=== PATIENT | male | born 1955 | race Caucasian/White ===

== ENCOUNTER 2018-10-22 08:07 | Day surgery (SDC) | payer BC, OTHER ==
[2018-10-22] MEDS ORDERED: diphenhydrAMINE 25 MG CAP PO ONE ×2 (08:12→08:28)
[2018-10-22] MEDS ORDERED: ASPIRIN EC 325 MG TAB PO ONE ×2 (08:12→08:28)
[2018-10-22] MEDS ORDERED: DIAZEPAM 5 MG TAB PO ONE (08:12)
[2018-10-22] MEDS ORDERED: NS 1,000 ML IV ONE (08:12)
[2018-10-22] MEDS ORDERED: FAMOTIDINE 20 MG TAB PO ONE (08:12)
[2018-10-22] MEDS ORDERED: FAMOTIDINE 20 MG TAB ONE (08:28)
[2018-10-22] MEDS ORDERED: DIAZEPAM 5 MG TAB ONE (08:29)
[2018-10-22 08:53] LABS: PLATELET COUNT 210 10^3/uL (150-400)
[2018-10-22 09:31] LABS: INR 1.05 (0.83-1.16); PROTIME(PATIENT) 13.3 SEC (12.0-15.0)
--- NOTE | 2018-10-22 09:44 | PDPROPOC ---
Sedation Plan of Care Sedation Plan of Care: vital signs stable, mental status noted, patient educated of risks, benefits, alternatives, patient can tolerate sedation ASA Classification: ASA 2 Planned drugs: fentanyl, midazolam Mallampati Score: Class 1 Mallampati Reference Image: Patient passed 3-3-2 rule?: Yes
--- NOTE | 2018-10-22 09:44 | PDHPUP ---
History & Physical Update H&P update statement: This history and physical update is based on an assessment of the patient which was completed after admission or registration (within 24 hours), but prior to the surgery/procedure. H&P update: H&P reviewed & patient examined, no change in patient's condition since H&P completed
[2018-10-22] MEDS ORDERED: LIDOCAINE 1% 300 MG/30 ML SDV ONE (10:59)
[2018-10-22] MEDS ORDERED: HEPARIN 10,000 UNIT/10 ML MDV (1,000 UNIT/ML) ONE (10:59)
[2018-10-22] MEDS ORDERED: VERAPAMIL 5 MG/2 ML VIAL ONE (10:59)
[2018-10-22] MEDS ORDERED: MIDAZOLAM 2 MG/2 ML VIAL ONE (10:59)
[2018-10-22] MEDS ORDERED: fentaNYL 100 MCG/2 ML INJ ONE (10:59)
[2018-10-22] MEDS ORDERED: IOPAMIDOL (ISOVUE-370) 150 ML BTL IV ONE (11:00)
--- NOTE | 2018-10-22 11:27 | CPEKG ---
Test Reason : OPEN Blood Pressure : / mmHG Vent. Rate : 049 BPM Atrial Rate : 049 BPM P-R Int : 154 ms QRS Dur : 095 ms QT Int : 482 ms P-R-T Axes : 043 067 -21 degrees QTc Int : 436 ms Sinus bradycardia Low voltage, extremity leads Minimal ST elevation, anterior leads Confirmed by Mike Oleary ([id number]) on 10/22/2018 11:27:20 AM Referred By: Jordi Steve Confirmed By:Mike Oleary
--- NOTE | 2018-10-22 14:08 | PDDXCAT ---
Diagnostic Cath Note - . Date: 10/22/18 Storage Architect: Power Indication: other (non sustained vt) High-risk criteria on non-invasive testing: stress-induced large perfusion defect (particularly if anterior), stress-induced moderate-size multiple perfusion defects - Procedure Access: right wrist Procedure: left heart catheterization, coronary angiography, left ventriculogram - Materials Left Heart Cath size: 5F Left Heart Cath materials: pigtail, other ([place] 4) - Findings-Left Heart Catheterization LM: Unobstructed LAD: Unobstructed LCX: Unobstructed RCA: Dominant: Unobstructed EDP: 15 mm of mercury LVEF: 50% Wall motion: Inferior akinesis Assessment: Widely patent site of prior stenting. No new focal stenosis with mild atherosclerotic cardiovascular disease. Inferior akinesis with overall preserved LV systolic function and normal filling pressures.
== END 2018-10-22 15:12 | disposition home or self-care (01) ==
LOC: FCATH 08:07
PROVIDERS: ATTEND Internal Medicine Interventional Cardiology
DX: R55 Syncope and collapse (principal); I47.2 Ventricular tachycardia; I47.1 Supraventricular tachycardia; I25.10 Atherosclerotic heart disease of native coronary artery without angina pectoris; I10 Essential (primary) hypertension; E78.5 Hyperlipidemia, unspecified; I34.0 Nonrheumatic mitral (valve) insufficiency; I25.5 Ischemic cardiomyopathy; I25.2 Old myocardial infarction; Z79.82 Long term (current) use of aspirin; Z82.3 Family history of stroke; Z82.49 Family history of ischemic heart disease and other diseases of the circulatory system; Z95.5 Presence of coronary angioplasty implant and graft
CPT/HCPCS: 93005; 93458; C1769; J1644; J2250; J3010; Q9967

== ENCOUNTER 2018-10-28 10:49 | Observation (INO) | payer BC, OTHER ==
[2018-10-28] MEDS ORDERED: NS 1,000 ML IV ONE (10:51)
[2018-10-28] MEDS ORDERED: BACITRACIN IRRIGATION/NS 50,000 UNITS/1,000 ML BTL IRR ONE (11:16)
[2018-10-28] MEDS ORDERED: ceFAZolin 2 GM/DEXTROSE 100 ML IV ONE (11:16)
[2018-10-28 11:37] LABS: PLATELET COUNT 210 10^3/uL (150-400)
[2018-10-28 11:47] LABS: INR 1.03 (0.83-1.16); PROTIME(PATIENT) 13.1 SEC (12.0-15.0)
[2018-10-28] MEDS ORDERED: ROCURONIUM 50 MG/5 ML VIAL ONE (11:57)
[2018-10-28] MEDS ORDERED: fentaNYL 100 MCG/2 ML INJ ONE (11:57)
[2018-10-28] MEDS ORDERED: PROPOFOL 200 MG/20 ML VIAL ONE (11:57)
[2018-10-28] MEDS ORDERED: fentaNYL 100 MCG/2 ML INJ IVP PRN (12:04)
[2018-10-28] MEDS ORDERED: NALOXONE HCL 0.4 MG/ML INJ IVP PRN (12:04)
[2018-10-28] MEDS ORDERED: ONDANSETRON 4 MG/2 ML VIAL IVP PRN (12:04)
[2018-10-28] MEDS ORDERED: MIDAZOLAM 2 MG/2 ML VIAL IVP ONE (12:04)
[2018-10-28] MEDS ORDERED: DEXAMETHASONE 4 MG/ML VIAL IVP PRN (12:04)
[2018-10-28] MEDS ORDERED: oxyCODONE IR 5 MG TAB PO PRN (12:04)
[2018-10-28] MEDS ORDERED: HYDROmorphONE/DILAUDID 1 MG/ML INJ IVP PRN (12:04)
[2018-10-28] MEDS ORDERED: ALBUTEROL 3 ML DEYVIAL IH PRN (12:04)
[2018-10-28] MEDS ORDERED: LIDOCAINE 1% 300 MG/30 ML SDV ONE ×2 (12:06→13:20)
[2018-10-28] MEDS ORDERED: BUPIVACAINE 0.75% 10 ML SDV ONE ×2 (12:06→13:20)
[2018-10-28] MEDS ORDERED: ISOPROTERENOL HCL/D5W 0.2 MG/50 ML BAG IV ONE (12:06)
[2018-10-28] MEDS ORDERED: HEPARIN 10,000 UNIT/10 ML MDV (1,000 UNIT/ML) ONE (12:06)
--- NOTE | 2018-10-28 12:06 | PDANEPAE ---
ANE History of Present Illness EP Study ANE Past Medical History - Cardiovascular History Hx Hypertension: Yes Hx Arrhythmias: Yes Hx Coronary Artery / Peripheral Vascular Disease: Yes Hx Palpitations: Yes - Pulmonary History Hx Sleep Apnea: No ANE Review of Systems Review of Systems: ANE Patient History - Allergies Allergies/Adverse Reactions: lactose Allergy (Verified 10/21/18 11:01) - Home Medications Home Medications: Aspirin [Aspirin 81mg (*)] 162 mg PO DAILY 10/21/18 [Last Taken 10/27/18] Atorvastatin Calcium [Lipitor 40 mg (*)] 80 mg PO HS 10/21/18 [Last Taken ] Metoprolol Tartrate [Lopressor 25 mg (*)] 12.5 mg PO BID 10/21/18 [Last Taken ] Nitroglycerin [Nitrostat 0.4 mg (*)] 0.4 mg SL Q5M PRN 10/21/18 [Last Taken Unknown] - Smoking Hx Smoking Status: Never smoked ANE Labs/Vital Signs - Labs Result Diagrams: 10/28/18 11:00 10/28/18 11:00 - Vital Signs Height: 182.88 cm Weight: 77.111 kg ANE Physical Exam - Airway Neck exam: FROM Mallampati Score: Class 2 Mouth exam: normal dental/mouth exam - Pulmonary Pulmonary: clear to auscultation - Cardiovascular Cardiovascular: regular rate and rhythym - ASA Status ASA Status: III ANE Anesthesia Plan Anesthesia Plan: general endotracheal anesthesia
[2018-10-28] MEDS ORDERED: PROPOFOL/EMULSION 500 MG/50 ML BOTTLE IV ONE (12:25)
--- NOTE | 2018-10-28 12:26 | PDGENHP ---
History & Physical Chief Complaint: syncope History of Present Illness: syncope in the context of structurally abnormal heart (CAD sp prior infarct with low-normal LVEF) Relevant Physical Exam: A+Ox4, RR/NR, no MRG, CTAB, no focal deficits Cardiorespiratory Assessment: syncope in structurally abnormal heart -> EPS for VT inducibility -> ICD vs ILR implant
[2018-10-28] MEDS ORDERED: PHENYLEPHRINE HCL 100 MCG/ML SYR ONE (13:47)
[2018-10-28] MEDS ORDERED: ePHEDrine SULFATE 25 MG/5 ML SYR ONE (13:47)
[2018-10-28] MEDS ORDERED: HYDROCODONE/APAP 5/325 TAB PO PRN (14:36)
[2018-10-28] MEDS ORDERED: ACETAMINOPHEN 325 MG TAB PO PRN (14:40)
--- NOTE | 2018-10-28 14:40 | POSTANESTH ---
Post Anesthetic Evaluation Cardiovascular Status: Normal, Stable Respiratory Status: Normal, Stable Level of Consciousness/Mental Status: Can Participate in Eval, Alert and Oriented Pain Control: Adequate, Prn Tx Ordered Nausea/Vomiting Control: Adequate, Prn Tx Ordered Complications Possibly Related to Anesthesia: None Noted
[2018-10-28] MEDS ORDERED: NITROGLYCERIN 0.4 MG BTL SL PRN (14:42)
--- NOTE | 2018-10-28 15:01 | EPPROC ---
Electrophysiology Procedure Note: Date: 10/28/2018 [employer] Agent: Semaj Castro MD Procedures: Comprehensive EP study with induction of arrhythmia -87551 Implantation of dual-chamber ICD -82162 DFT testing -56917 Indications: 63-year-old male with coronary artery disease, status post prior inferior CT with PCI to the RCA in 2011 and in 2013, with most recent LVEF 45% by SPECT 09/2018; LVEF 53% by echo 09/2018. He has experienced syncope, the workup of which reveals no revascularizable coronary artery disease, and ambulatory monitoring showing several episodes of nonsustained ventricular tachycardia. He is referred for EP study for inducibility of VT, followed by implantation of ILR versus ICD based on risk stratification. Techniques: Following informed consent, the patient was brought to the EP lab in a fasting nonsedated state, in sinus rhythm. IV antibiotics were administered. IV sedation was provided by the anesthesiology service. Bilateral groins were prepped and draped in usual sterile fashion. Under ultrasound guidance, vascular access was obtained in the right femoral vein x1 with placement of a 5 Armenian hemostasis sheath. A quad catheter was advanced to an RV apical position. Ventricular programmed stimulation was performed from the quad catheter. During induction testing, sustained monomorphic VT was induced at 600/310/230/ 220/210ms. The tachycardia demonstrated RBLS morphology with V3 precordial transition (suspect mid-inferior LV exit site, consistent with known prior inferobasal infarction). TCL 210ms. Pulseless/hemodynamically unstable. The tachycardia was terminated with a single 200 joule biphasic on synchronized transcutaneous shock. The quad catheter was removed, and the 5 Armenian sheath was removed from the right femoral vein; manual pressure was held until hemostasis. VERP 600/270ms. The left anterior chest was then prepped and draped in usual sterile fashion. 1 % lidocaine was infiltrated over the left DP groove. The skin incision was made in this location and cutdown was performed to the DP fascia; a subcutaneous pocket was fashioned. Vascular access was obtained x2 in the extrathoracic portion of the left subclavian vein under ultrasound guidance, with placement of a 7 Armenian and a 9 Armenian hemostasis sheath. An ICD lead was delivered to distal RV septal position and actively fixated. A pacing lead was delivered to RA appendage position and actively fixated. The leads were anchored to the underlying fascia using 2 nonabsorbable sutures around each lead 's retention sleeve. The leads were connected to a pulse generator and the system was placed in pocket. A non resorbable stay suture was applied to the can. The pocket was irrigated with antibiotic solution and D Stat hemostatic matrix was injected. The incision was closed in layers using resorbable sutures and dressed with Steri-Strips. After ensuring adequate sedation, VF rhythm was induced with shock on T protocol. There was appropriate sensing of VF via the ICD, and successful termination of the rhythm with a single 15 joule discharge. Final fluoroscopy showed stable system position and no evidence of pneumothorax. The patient tolerated the procedure well. Pulse generator: Medtronic [id number], SN [id number], implant 10/28/18 MVPR 60-130 Monitor 360ms FVT via VF 320ms VF 290ms RA lead: Medtronic [id number], SN [id number], implant 10/28/18 2.5mV, 627ohms, 0.75V@0.4ms RV lead: Medtronic [id number], SN [id number], implant 10/28/18 9.4mV, 513ohms, 0.75V@0.4ms EBL: Minimal Complications: None Plan: Bedrest 4 hr postprocedure CXR and interrogation in a.m. Keep incision dry for 2 weeks LUE restrictions for 1 month
--- NOTE | 2018-10-28 16:45 | CPEKG ---
Test Reason : OPEN Blood Pressure : / mmHG Vent. Rate : 064 BPM Atrial Rate : 062 BPM P-R Int : 159 ms QRS Dur : 093 ms QT Int : 441 ms P-R-T Axes : 039 071 -45 degrees QTc Int : 455 ms Sinus rhythm Non-specific change in ST segment in lateral leads. Confirmed by Johann Hyman ([id number]) on 10/28/2018 4:44:51 PM Referred By: Aryan Castro Confirmed By:Johann Hyman
--- NOTE | 2018-10-28 16:49 | CPEKG ---
Test Reason : OPEN Blood Pressure : / mmHG Vent. Rate : 073 BPM Atrial Rate : 073 BPM P-R Int : 156 ms QRS Dur : 096 ms QT Int : 414 ms P-R-T Axes : 073 061 -67 degrees QTc Int : [address] depression anterior and lateral leads. Confirmed by Johann Hyman ([id number]) on 10/28/2018 4:48:42 PM Referred By: Aryan Castro Confirmed By:Johann Hyman
[2018-10-28] MEDS: METOPROLOL TARTRATE 25 MG TAB PO SCH (20:15)
[2018-10-28] MEDS ORDERED: ATORVASTATIN CALCIUM 40 MG TAB PO SCH (21:00)
[2018-10-29 04:50] LABS: PLATELET COUNT 182 10^3/uL (150-400)
[2018-10-29] MEDS ORDERED: ASPIRIN 81 MG CHEWABLE TAB PO SCH (09:00)
[2018-10-29 11:06] VITALS: BP 130/74
[2018-10-29] MEDS: METOPROLOL TARTRATE 25 MG TAB PO SCH (11:08)
[2018-10-29] MEDS ORDERED: PNEUMOCOCCAL 0.5ML VACCINE VIAL (PNEUMOVAX 23) IM ONE (11:17)
[2018-10-29] MEDS ORDERED: PNEUMOC 13-VAL CONJ-DIP CRM/PF 0.5 ML SYR (PREVNAR 13) IM ONE (11:30)
--- NOTE | 2018-10-29 11:45 | ASDISCHSUM ---
Discharge Information Plan Status:Home with No Needs Medically Cleared to Leave:10/29/2018 Discharge Date:10/29/2018 CM D/C Disposition:Home, Routine, Self-Care ADT D/C Disposition:Home, Routine, Self-Care Projected Discharge Date:10/29/2018 Transportation at D/C: Discharge Delay Reason: Follow-Up Date:10/29/2018 Discharge Slot: Final Diagnosis: Placement Information Patient Contact Information Contact Name:ANITRA Relationship: Address:[address] [place] [place]:[facility] Phone: [facility]/Zip Code:[place] [address] Email: Financial Information Financial Class:BCOP Primary Plan Desc: OUT OF STATE PP Primary Plan Number:[id number] Secondary Plan Desc: Secondary Plan Number: Assessment Information LACE LACE Length of stay for Answers: Less than 1 day current admission Acuity / Level of Answers: No Care: Did the patient have an inpatient admission? Comorbidities - select Answers: Coronary Artery Disease all that apply Previous myocardial infarction Other Notes: HTN # of Emergency department Answers: 0 visits in the last 6 months Score: 4 Date Signed: 10/29/2018 11:44 AM Electronically Signed By:Alondra Cristobal RN Intervention Information
--- NOTE | 2018-10-29 12:32 | CPEKG ---
Test Reason : OPEN Blood Pressure : / mmHG Vent. Rate : 061 BPM Atrial Rate : 062 BPM P-R Int : 147 ms QRS Dur : 097 ms QT Int : 412 ms P-R-T Axes : 049 019 -82 degrees QTc Int : 415 ms Sinus rhythm Possible Inferior infarct, age indeterminate TWI lateral leads, consider lateral ischemia. Confirmed by Johann Hyman ([id number]) on 10/29/2018 12:31:57 PM Referred By: Aryan Castro Confirmed By:Johann Hyman
--- NOTE | 2018-11-01 13:49 | GDS ---
[f rep st] DISCHARGE SUMMARY SUPERVISING PITCHING COACH: Dr. Semaj Castro. ADMISSION DIAGNOSES: 1. Syncope. 2. Ischemic cardiomyopathy. DISCHARGE DIAGNOSES: 1. Syncope. 2. Sustained ventricular tachycardia. 3. Implanted defibrillator. PROCEDURES PERFORMED DURING HOSPITALIZATION: 1. Electrocardiogram. 2. Electrophysiology study. 3. Chest x-ray. 4. Implanted cardioverter-defibrillator. HOSPITAL COURSE: The patient presented 10/28/2018, for further evaluation of syncope in the setting of a prior history of inferior MD and ischemic cardiomyopathy with LVEF 45%. EP study demonstrated s ustained monomorphic VT and an ICD was placed by Dr. Semaj Castro at that time. The patient has done very well in the postprocedure setting and he is appropriate and stable for discharge home today. PHYSICAL EXAMINATION: GENERAL: Alert and oriented x4, in no apparent distress. VITAL SIGNS: Blood pressure 130/74, heart rate 61, respiratory rate 19, SpO2 96% on room air, and temp 36.7 degrees [place]. RESPIRATORY: Lungs are clear to auscultation without adventitious breath sounds. CARDIAC: N ormal S1, S2. No S3, S4. Rhythm is regular. ABDOMEN: Normoactive bowel sounds x4 quadrants. No m asses or tenderness. Soft to palpation. SKIN: [place], warm, dry without cyanosis, clubbing, or perip heral edema. Left pectoral incision is clean, dry, and intact with Steri-Strips in place, no evidenc e of hematoma, redness, oozing, or streaking from the site. EXTREMITIES: Pulses 2+ bilaterally. No edema. LABORATORY STUDIES: Drawn today and demonstrate stable CBC and BMP compared to preprocedure. IMAGING: Chest x-ray this morning demonstrates stable lead positioning. Device interrogation today demonstrates normal device function. DISCHARGE DISPOSITION: The patient will be discharged home in stable condition. He is under activit y instructions as below. DISCHARGE MEDICATIONS: Please see discharge medication reconciliation sheet for full details. DISCHARGE INSTRUCTIONS: Post ICD implant instructions reviewed with patient and his in detail. 1. We discussed activity restrictions, including lifting no more than 5 pounds, avoidance of pushing , pulling, or putting his left arm behind his body for 4 weeks. He will also avoid upper body strenu ous exercises for 6 weeks. 2. He will wear a sling at night for 4 weeks. [address] He may drive after 48 hours. 4. He will keep his incision clean and dry. He will not shower or take baths or swim for 2 weeks. Sponge baths are appropriate during this time. He will not apply ointments or lotions, powders or ge ls to his incision. 5. He will leave the Steri-Strips in place. 6. He will follow up with our Device [facility] in 1 week and follow up with Dr. Castro in 4 weeks. The patient and verbalized understanding, regarding all discharge instructions without questions or concerns. He has a followup visit scheduled with Dr. Castro in 3 weeks and he will contact us with any new or concerning symptoms prior to his upcoming visit. Time spent on discharge was greater than 30 minutes. /[id number]/MODL
== END 2018-10-29 12:46 | disposition home or self-care (01) ==
LOC: FCATH 10:49 → F2W 14:37
PROVIDERS: ADMIT Internal Medicine Cardiovascular Disease; ATTEND Internal Medicine Cardiovascular Disease
DX: I47.2 Ventricular tachycardia (principal); R55 Syncope and collapse; I25.5 Ischemic cardiomyopathy; I25.2 Old myocardial infarction; I25.10 Atherosclerotic heart disease of native coronary artery without angina pectoris; Z23 Encounter for immunization
CPT/HCPCS: 33249; 71046; 90471; 93005; 93620; 93641; A4649; C1730; G0378; C1721; C1777; C1898; G0009; J0690; J1644; J2370; J2704; J3010